=== PATIENT | female | born 1990 | race Caucasian/White ===

== ENCOUNTER 2024-04-06 17:48 | Emergency (ER) | payer SELFPAY ==
[2024-04-06 19:54] LABS: Bilirubin Neg (Negative); Blood, Urine 250 (Negative); Clarity Slightly Cloudy (Clear); Glucose, Urine (Dipstick) Normal (Negative); Ketone, Urine Negative (Negative); Leukocyte 25 (Negative); Nitrite Negative (Negative); Protein, Urine (Dipstick) 15 mg/dl (Neg-Trace); Specific Gravity, Urine 1.005 (1.005-1.030); Urobilinogen Normal mg/dL (Less than 2)
[2024-04-06 20:00] LABS: #Basophils 0.05 10x3/uL (0.0-0.2); #Eosinphils 0.19 10x3/uL (0.0-0.5); #Monocytes 0.69 10x3/uL (0.0-1.1); #Neutrophils 6.74 10x3/uL (1.5-8.4); %Basophils 0.5 % (0.0-2.0); %Eosinophils 1.7 % (0.0-6.0); %Lymphocytes 29.7 % (18.0-47.0); %Monocytes 6.3 % (0.0-10.0); %Neutrophils 61.4 % (40.0-75.0); Hematocrit 40.8 % (34.9-44.5); Hemoglobin 14.3 g/dL (12.0-15.5); Mean Corpuscular Hemoglobin 29.9 pg (27.0-33.0); Mean Corpuscular Volume 85.2 fL (81.6-98.3); Mean Platelet Volume 9.4 fL (7.4-10.4); Platelet Count 426 10x3/uL (150-450); RBC Distribution Width 12.9 % (11.5-14.5); Red Blood Cell (RBC) Count 4.79 10x6/uL (3.90-5.03)
[2024-04-06 20:12] LABS: CAUTI Indications for Culture Pelvic or flank pain
[2024-04-06 20:13] LABS: Bacteria/HPF 2+ HPF (None Seen); Yeast-Hyphae 1+ HPF (None Seen)
[2024-04-06 20:13] LABS: ALT (SGPT) 28 U/L (8-55); AST (SGOT) 22 U/L (5-34); Albumin 4.1 g/dL (3.5-5.0); Alkaline Phosphatase 91 U/L (40-110); Anion Gap 14 mmol/L (10-20); BUN (Urea Nitrogen) 11 mg/dL (7.0-18.7); Bilirubin, Total 0.3 mg/dL (0.2-1.2); Calc. Creatinine Clearance 0 mL/min (70-130); Calcium 10.1 mg/dL (7.8-10.44); Carbon Dioxide 24 mmol/L (22-29); Chloride 101 mmol/L (98-107); Estimated GFR 118; Globulin 3.8 g/dL (2.4-3.5); Glucose 89 mg/dL (70-105); Lipase 47 U/L (8-78); Magnesium 1.9 mg/dL (1.6-2.6); Potassium 3.7 mmol/L (3.5-5.1); Protein, Total 7.9 g/dL (6.0-8.3); Sodium 135 mmol/L (136-145)
[2024-04-06 20:14] LABS: Urine Culture Reflex No No
[2024-04-06] MEDS ORDERED: Acetaminophen 500 MG TAB ONE (20:47)
[2024-04-06 21:27] LABS: Troponin I Less than 0.010 ng/mL (< 0.028)
[2024-04-06] MEDS ORDERED: fentaNYL 50 mcg/mL 1 mL Vial ONE (23:10)
== END 2024-04-06 23:59 | disposition home or self-care (01) ==
LOC: CSHERS 17:48
DX: N39.0 Urinary tract infection, site not specified (principal); B37.31 Acute candidiasis of vulva and vagina
CPT/HCPCS: 36415; 76856; 80053; 81001; 83690; 83735; 84484; 84702; 85025; 93005; 96374; J3010